=== PATIENT | male | born 1940 | race Caucasian/White ===

== ENCOUNTER 2016-11-25 20:03 | Inpatient (IN) | payer BC, OTHER ==
[~2016-11-25] VITALS: Ht 170.2 cm; Wt 79.2 kg
[2016-11-25] MEDS ORDERED: NIAC500T7 PO (20:36)
[2016-11-25] MEDS ORDERED: LISI-461 PO (20:36)
[2016-11-25] MEDS ORDERED: SIMV20TA2 PO (20:36)
[2016-11-25] MEDS ORDERED: CHOL1000 PO (20:36)
[2016-11-25] MEDS ORDERED: CARV3.122 PO (20:36)
[2016-11-25] MEDS ORDERED: ASPI81TA28 PO (20:36)
[2016-11-25] MEDS ORDERED: SODIUM CHLORIDE 0.9% 1000ML 1,000 ML IV STA (20:44)
[2016-11-25 21:02] LABS: BASO % 0.6 %; BASO ABS # 0.04 K/uL (0-0.2); COMPLETE YES; EOS % 4.1 %; HEMATOCRIT 38.2 % (42-52); IG% 0.3 %; LYMPH % 28.4 %; LYMPH ABS # 1.92 K/uL (1.2-3.4); MEAN CELL VOLUME 90.1 fL (80-100); MEAN CORPUSCULAR HEMOGLOBIN 30.7 pg (25-34); MEAN PLATELET VOLUME 11.3 fL (7.4-10.4); MONO % 9.7 %; NEUT % 56.9 %; PLATELET COUNT 229 K/uL (130-400); RED BLOOD COUNT 4.24 M/uL (4.7-6.1); WHITE BLOOD COUNT 6.77 K/uL (4.8-10.8)
--- NOTE | 2016-11-25 21:02 | DIAGNOSTIC IMAGING REPORT ---
CHEST ONE VIEW PORTABLE CLINICAL HISTORY: Chest pain. COMPARISON STUDY: No previous studies for comparison. FINDINGS: Lung volumes are normal. No consolidation is identified. Pulmonary vascularity is normal. Cardiomediastinal silhouette is unremarkable. There is no pneumothorax or pleural effusion. IMPRESSION: No acute cardiopulmonary findings. Electronically signed by: Agustin Massey M.D. 11/25/2016 9:01 PM Dictated Date/Time: 11/25/2016 9:00 PM
[2016-11-25 21:12] LABS: ALT/SGPT 22 U/L (12-78); AST/SGOT 15 U/L (15-37); BLOOD UREA NITROGEN 22 mg/dl (7-18); BUN/CREATININE RATIO 13.9 (10-20); CALCIUM 8.5 mg/dl (8.5-10.1); CARBON DIOXIDE 32 mmol/L (21-32); CHLORIDE 105 mmol/L (98-107); GLUCOSE 135 mg/dl (70-99); POTASSIUM 4.2 mmol/L (3.5-5.1); SODIUM 139 mmol/L (136-145)
[2016-11-25 21:13] LABS: ALKALINE PHOSPHATASE 95 U/L (45-117)
[2016-11-25] MEDS ORDERED: ONDANSETRON INJ 2 MG/ML 2 ML VIAL IV PRN (22:00)
[2016-11-25] MEDS ORDERED: MoRPHine SULFATE 2 MG/ML CARP IV PRN (22:00)
[2016-11-25] MEDS ORDERED: SODIUM CHLORIDE 0.9% 1000ML 1,000 ML IV ONE (22:00)
[2016-11-25] MEDS ORDERED: ACETAMINOPHEN 325 MG TAB PO PRN (22:00)
[2016-11-25] MEDS ORDERED: NITROGLYCERIN 0.4 MG SL PER TAB CHARGE SL PRN (22:00)
[2016-11-25 22:17] VITALS: O2SAT 98
[2016-11-25 22:32] VITALS: Ht 170.2 cm; Wt 79.2 kg
[2016-11-25 22:36] VITALS: BP 139/71; PULSE 57; TEMP 36.8; O2SAT 97
[2016-11-26 03:25] VITALS: BP 132/69; PULSE 58; TEMP 36.4; O2SAT 97
--- NOTE | 2016-11-26 04:12 | History and Physical ---
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 The patient notes he was at [employer] when he suddenly suffered from acute chest pressure when he was sitting down. He had associated nausea and diaphoresis with the onset of the chest pressure. He suddenly slumped over on the chair at [employer] and her gave him nitroglycerin. The nitro was given three times and he had become unresponsive again for a few seconds after the third nitro. On assessment the patient has ongoing chest pressure which is a 2/10 currently. There was no radiation of the pain and he could not recall anything that aggravated the pain or improved it. The IL was in the RCA and patient received two stents for this IL at [place]. He is a non smoker. Past Medical/Surgical History NSTEMI HTN Family History No significant family history Social History Smoking Status: Never Smoker Smokeless Tobacco Use: No Alcohol Use: none Drug Use: none Marital Status: Housing status: lives with family Occupational Status: retired Immunizations History of Influenza Vaccine: Unknown History of Tetanus Vaccine?: Unknown History of Pneumococcal: Unknown History of Hepatitis B Vaccine: Unknown Multi-Drug Resistant Organisms History of MDRO: No Allergies Coded Allergies: No Known Allergies (Unverified , 11/25/16) Home Medications Scheduled Aspirin (Aspirin Ec), 81 MG PO DAILY Carvedilol (Coreg), 3.125 MG PO BID Cholecalciferol (Vitamin D3), 1,000 UNITS PO BID Lisinopril (Zestril), 10 MG PO BID Niacinamide (Niacin), 500 MG PO DAILY Simvastatin (Zocor), 20 MG PO QPM Scheduled PRN Nitroglycerin (Nitrostat), 0.4 MG SL [id number] PRN for chest pain Review of Systems Constitutional: No fever Eyes: No worsening of vision ENT: No hearing loss Respiratory: No cough, No sputum, No wheezing, No shortness of breath, No dyspnea on exertion, No dyspnea at rest Cardiovascular: + chest pain Abdomen: + nausea, No pain, No vomiting, No diarrhea, No constipation Musculoskeletal: No joint pain, No muscle pain Genitourinary - Male: No hematuria, No dysuria Neurologic: No weakness, No numbness/tingling, No balance problems Psychiatric: No depression symptoms Endocrine: No fatigue Hematologic / Lymphatic: No abnormal bleeding/bruising Integumentary: No rash Physical Exam Vital Signs Date Time Temp Pulse Resp B/P (MAP) Pulse Ox O2 Delivery O2 Flow Rate FiO2 11/26/16 03:25 36.4 58 16 132/69 (90) 97 Room Air 11/26/16 00:00 Room Air 11/25/16 22:36 36.8 57 20 139/71 (93) 97 Room Air 11/25/16 22:32 Room Air 11/25/16 22:17 59 18 150/79 98 11/25/16 21:15 58 18 127/63 97 Room Air 11/25/16 21:03 57 13 98 11/25/16 20:48 55 15 97 11/25/16 20:33 55 14 96 11/25/16 20:31 98 Room Air 11/25/16 20:18 54 15 96 11/25/16 20:13 96 Room Air 11/25/16 20:13 36.4 51 18 135/65 97 Room Air 11/25/16 20:09 52 11/25/16 20:08 135/65 General Appearance: no apparent distress Head: normocephalic, atraumatic Eyes: normal inspection ENT: normal ENT inspection Neck: supple, no JVD Respiratory/Chest: lungs clear, normal breath sounds, no respiratory distress, no accessory muscle use Cardiovascular: regular rate, rhythm, no murmur, normal peripheral pulses Abdomen/GI: normal bowel sounds, non tender, soft Back: normal inspection, no CVA tenderness Extremities/Musculoskelatal: no calf tenderness, no pedal edema, normal range of motion Neurologic/Psych: alert, normal mood/affect, oriented x 3 Skin: normal color, warm/dry, no rash Lymphatic: no adenopathy Diagnostics Laboratory Results Results Past 24 Hours Test 11/25/16 20:25 11/25/16 20:54 11/26/16 02:09 Range/Units White Blood Count 6.77 4.8-10.8 K/uL Red Blood Count 4.24 4.7-6.1 M/uL Hemoglobin 13.0 14.0-18.0 g/dL Hematocrit 38.2 42-52 % Mean Corpuscular Volume 90.1 80-100 fL Mean Corpuscular Hemoglobin 30.7 25-34 pg Mean Corpuscular Hemoglobin Concent 34.0 32-36 g/dl Platelet Count 229 130-400 K/uL Mean Platelet Volume 11.3 7.4-10.4 fL Neutrophils (%) (Auto) 56.9 % Lymphocytes (%) (Auto) 28.4 % Monocytes (%) (Auto) 9.7 % Eosinophils (%) (Auto) 4.1 % Basophils (%) (Auto) 0.6 % Neutrophils # (Auto) 3.85 1.4-6.5 K/uL Lymphocytes # (Auto) 1.92 1.2-3.4 K/uL Monocytes # (Auto) 0.66 0.11-0.59 K/uL Eosinophils # (Auto) 0.28 0-0.5 K/uL Basophils # (Auto) 0.04 0-0.2 K/uL RDW Standard Deviation 40.4 36.4-46.3 fL RDW Coefficient of Variation 12.4 11.5-14.5 % Immature Granulocyte % (Auto) 0.3 % Immature Granulocyte # (Auto) 0.02 0.00-0.02 K/uL Sodium Level 139 136-145 mmol/L Potassium Level 4.2 3.5-5.1 mmol/L Chloride Level 105 98-107 mmol/L Carbon Dioxide Level 32 21-32 mmol/L Anion Gap 2.0 3-11 mmol/L Blood Urea Nitrogen 22 7-18 mg/dl Creatinine 1.60 0.60-1.40 mg/dl Est Creatinine Clear Calc Drug Dose 41.3 ml/min Estimated GFR () 48.1 Estimated GFR (Non- 41.5 BUN/Creatinine Ratio 13.9 10-20 Random Glucose 135 70-99 mg/dl Calcium Level 8.5 8.5-10.1 mg/dl Total Bilirubin 0.3 0.2-1 mg/dl Direct Bilirubin < 0.1 0-0.2 mg/dl Aspartate Amino Transf (AST/SGOT) 15 15-37 U/L Alanine Aminotransferase (ALT/SGPT) 22 12-78 U/L Alkaline Phosphatase 95 45-117 U/L Total Protein 6.5 6.4-8.2 gm/dl Albumin 3.7 3.4-5.0 gm/dl Lipase 260 73-393 U/L Bedside Troponin I < 0.030 0-0.045 ng/ml Troponin I < 0.015 0-0.045 ng/ml Diagnostic Radiology CHEST ONE VIEW PORTABLE CLINICAL HISTORY: Chest pain. COMPARISON STUDY: No previous studies for comparison. FINDINGS: Lung volumes are normal. No consolidation is identified. Pulmonary vascularity is normal. Cardiomediastinal silhouette is unremarkable. There is no pneumothorax or pleural effusion. IMPRESSION: No acute cardiopulmonary findings. Impression Assessment and Plan This is a 76 yo m that is suffering from chest pain which is suggestive of a myocardial infarction based on history and significant past medical history Chest pain NYD with a history of IL - tele admission - trend troponin - stress echo in am if troponin are negative - will defer cardio consult for now - continue 81 mg of ASA daily CHELI vs CKD - unknown BL cr - will recheck in am - IVF NSS @ 150cc/h HTN - continue lisinopril and metoprolol Hyperlipidemia - continue simvastatin and niacin DVT Prophylaxis - SCD for now Attending Addendum: I have physically seen and examined this patient, have supervised the medical residents activities, and agree with the H&P as noted above with the following exceptions as noted. The patient presents to the emergency department after having a syncopal episode , with associated chest pressure, nausea and diaphoresis while at [employer]. The patient denies palpitations, cough, lower extremity swelling, vision change , hearing change, sore throat, fevers, chills, sweats, weight change, fatigue, vomiting, abdominal pain, pelvic pain, blood in urine or stool, dysuria, urinary frequency or urgency, headache, memory loss, rash, abnormal bruising or bleeding, focal weakness, numbness or tingling in arms or legs, generalized arthralgias or myalgias, back or neck pain, night sweats, or allergy symptoms. The review of systems is otherwise negative other than for that already noted above, and at least 10 systems have been reviewed. The patient is awake, well-developed and adequately nourished, alert and oriented 3, normocephalic and atraumatic, lying in bed and in no acute distress. HEENT--PERRL, EOMI, mucous membranes and oropharynx dry. Neck--supple, no JVD or bruits, thyroid normal, trachea midline, no adenopathy. Heart--normal S1 and S2, no extra beats, no murmurs, rubs or gallops. Lungs--clear bilaterally with good air movement, no respiratory distress, no accessory muscle use. Abdomen--normal bowel sounds and soft, nontender and nondistended, no hernias or masses, no organomegaly. Extremities--no cyanosis, clubbing or edema. There are good distal pulses b/l. Dermatologic--normal skin turgor, normal color, warm and dry, no abnormal lymph nodes, no rash. Neurologic--cranial nerves II through XII grossly intact, motor and sensory examination normal. Rheumatologic--normal range of motion, nontender, muscles and joints. Psychiatric--normal affect. Assessment and Plan: 1. CAD/hypertension/history of IL/new episode of chest pressure with syncope-- The patient will be admitted to telemetry for serial cardiac enzymes, cardiac rhythm monitoring and a 2-D echocardiogram with Dopplers. Continue aspirin 81 mg by mouth daily, carvedilol 3.125 mg by mouth twice a day with hold parameters. Hold lisinopril due to acute kidney injury, and place on normal saline at 150 mL per hour. Check serial BMP and magnesium levels. 2. Hyperlipidemia --continue simvastatin 20 mg by mouth every afternoon and niacin 500 mg by mouth daily. Level of Care Telemetry Advanced Directives Existing Living Will: Yes Existing Power of Jack Spinner: Yes Resuscitation Status FULL RESUSCITATION VTE Prophylaxis VTE Risk Assessment Done? Y/N: Yes Risk Level: Moderate Given or contraindicated: SCD's Social Service Consult None Apply Note Total Time: Critical Care 30 - 74 minutes
[2016-11-26 08:01] VITALS: BP 138/63; PULSE 63; TEMP 36.9; O2SAT 95
[2016-11-26] MEDS ORDERED: CHOLECALCIFEROL 1000 INTER.UNIT TAB PO SCH ×2 (09:00)
[2016-11-26] MEDS ORDERED: CARVEDILOL 3.125 MG TAB PO SCH (09:00)
[2016-11-26] MEDS ORDERED: ASPIRIN 81 MG ECTAB PO SCH ×2 (09:00)
[2016-11-26] MEDS ORDERED: LISINOPRIL 10 MG TAB PO SCH (09:00)
[2016-11-26] MEDS ORDERED: NIACIN 500 MG TAB IMMEDIATE RELEASE PO SCH (09:00)
[2016-11-26 09:26] LABS: BLOOD UREA NITROGEN 18 mg/dl (7-18); BUN/CREATININE RATIO 17.7 (10-20); CALCIUM 8.3 mg/dl (8.5-10.1); CARBON DIOXIDE 27 mmol/L (21-32); CHLORIDE 110 mmol/L (98-107); CKMB/CK RATIO 2.8 (0-3.0); GLUCOSE 95 mg/dl (70-99); MAGNESIUM 2.1 mg/dl (1.8-2.4); POTASSIUM 4.2 mmol/L (3.5-5.1); SODIUM 142 mmol/L (136-145)
[2016-11-26 12:12] VITALS: BP 133/72; PULSE 66; TEMP 36.6; O2SAT 95
[2016-11-26] MEDS ORDERED: OPTIRAY 320 IV PRN (12:30)
--- NOTE | 2016-11-26 12:32 | EXERCISE STRESS ECHO ---
*NOTICE TO RECEIVING CONSTITUTION PARTY AGENCY This information is strictly Confidential and protected under [place] law. [place] law prohibits you from making any further disclosure of this information unless further disclosure is expressly permitted by the written consent of the person to whom it pertains or is authorized by law. A general authorization for the release of medical or other information is not sufficient for this purpose. Hospital accepts no responsibility if the information is made available to any other person, INCLUDING THE PATIENT. Interpretation Summary * Name: REUBEN MCNALLY Study Date: 11/26/2016 08:54 AM BP: 157/73 mmHg * Patient Location: C.2T\S\S232\S\1 HR: 57 * : 1940 (M/d/yyyy) Gender: Male Height: 67 in * Age: 76 yrs Ethnicity: [place] Weight: 175 lb * Ordering Physician: Chelsie Emanuel * Referring Physician: Kip Latif * Performed By: Karuna Vigil RDCS * * Reason For Study: CHEST PAIN, PRESSURE * BSA: 1.9 m2 * -- Conclusions -- * Stress Echo: * 1. Negative stress echo for ischemia at 86 % MPHR. * 2. Negative exercise ECG for ischemia at 86 % MPHR. * 3. Hypertensive blood pressure response to exercise. * 4. No arrhythmia. * 5. Study terminated due to hypertension. * 6. Patient complained of chest pain prior to exercise and during exercise. It resolved in recovery. * 7. Fair/good exercise tolerance. * Echo: * 1. Normal left ventricular size and systolic function. EF 60-65%. No regional wall motion abnormalities. No left ventricular hypertrophy. Type 1 diastolic dysfunction regurgitation. * 2. Mild mitral regurgitation. * 3. Normal estimated right ventricular systolic pressure; 31 mmHg. Procedure Details * ECHOEX, CPT #[id number] Left Ventricle * The left ventricle is normal in size. * There is normal left ventricular wall thickness. * Left ventricular systolic function is normal. * The left ventricular ejection fraction increases normally with stress. The left ventricular end-systolic cavity size reduces post-stress (normal response). The left ventricular wall motion with stress is normal. * Resting wall motion: Normal. Stress wall motion: Appropriate increase in Left ventricular systolic function and decrease in cavity size. No stress induced segmental wall motion abnormalities. Right Ventricle * The right ventricle is normal in size and function. * The right ventricular systolic function is normal as assessed by tricuspid annular plane systolic excursion (TAPSE) (normal >1.5 cm). Atria * The left atrial size is normal. * Right atrial size is normal. * There is no evidence of atrial septal defect, but resolution does not allow assessment for a patent foramen ovale. Mitral Valve * The mitral valve leaflets appear normal. There is no evidence of stenosis, fluttering, or prolapse. * There is mild mitral regurgitation. Tricuspid Valve * The tricuspid valve is not well visualized, but is grossly normal. * There is no tricuspid stenosis. * There is mild tricuspid regurgitation. Aortic Valve * The aortic valve is trileaflet. * No hemodynamically significant valvular aortic stenosis. * No aortic regurgitation is present. Pulmonic Valve * The pulmonary valve is inadequately visualized, but the Doppler data is adequate for interpretation. * Trace pulmonic valvular regurgitation. Great Vessels * The aortic root is normal size. * Normal pulmonary venous flow pattern. Pericardium * There is no pericardial effusion. Stress Parameters * NSR at 60 bpm. * Stress ECG: No ST changes. No arrhythmias. * No arrhythmia were noted with stress. * Rest heart rate was '57' BPM. * Rest blood pressure was '157/73' * Maximum heart rate achieved was 125 bpm. * Maximum heart rate was 86 % of maximum age-predicted heart rate. * Maximum blood pressure was '216/61 mmHg' * Total exercise time was '7:17' * Maximum exercise MET level achieved was '8.90' METS * Maximum treadmill speed was '3.40' miles per hour. * Maximum treadmill elevation was '14.00'% grade. * Exercise was terminated due to 'ACHIEVING TARGET HR and hypertension' * Exercise-induced hypertension. Left Ventricular Diastolic Function * Grade I diastolic dysfunction, (abnormal relaxation pattern). MMode 2D Measurements and Calculations IVSd 1.1 cm IVSs 1.4 cm LVIDd 3.8 cm LVIDs 2.6 cm LVPWd 1.1 cm LVPWs 1.7 cm IVS/LVPW 1.0 FS 31.5 % EDV(Teich) 63.6 ml ESV(Teich) 25.3 ml EF(Teich) 60.2 % EDV(cubed) 56.7 ml ESV(cubed) 18.2 ml EF(cubed) 67.9 % % IVS thick 28.2 % % LVPW thick 55.8 % LV mass(C)d 134.2 grams LV mass(C)dI 70.2 grams/m\S\2 LV mass(C)s 139.9 grams LV mass(C)sI 73.2 grams/m\S\2 SV(Teich) 38.3 ml SI(Teich) 20.0 ml/m\S\2 SV(cubed) 38.5 ml SI(cubed) 20.2 ml/m\S\2 Ao root diam 3.6 cm Ao root area 10.2 cm\S\2 LA dimension 3.5 cm asc Aorta Diam 2.9 cm LA/Ao 0.97 LVAd ap4 29.4 cm\S\2 LVLd ap4 8.4 cm EDV(MOD-sp4) 83.9 ml EDV(sp4-el) 87.1 ml LVAs ap4 16.1 cm\S\2 LVLs ap4 7.2 cm ESV(MOD-sp4) 30.4 ml ESV(sp4-el) 30.4 ml EF(MOD-sp4) 63.8 % EF(sp4-el) 65.1 % LVAd ap2 26.6 cm\S\2 LVLd ap2 8.0 cm EDV(MOD-sp2) 71.7 ml EDV(sp2-el) 74.9 ml LVAs ap2 15.3 cm\S\2 LVLs ap2 6.8 cm ESV(MOD-sp2) 30.6 ml ESV(sp2-el) 29.3 ml EF(MOD-sp2) 57.3 % EF(sp2-el) 60.8 % LVLd %diff -4.81 % EDV(MOD-bp) 80.4 ml LVLs %diff -6.47 % ESV(MOD-bp) 30.6 ml EF(MOD-bp) 61.9 % SV(MOD-sp4) 53.5 ml SI(MOD-sp4) 28.0 ml/m\S\2 SV(MOD-sp2) 41.1 ml SI(MOD-sp2) 21.5 ml/m\S\2 SV(MOD-bp) 49.8 ml SI(MOD-bp) 26.1 ml/m\S\2 SV(sp4-el) 56.7 ml SI(sp4-el) 29.7 ml/m\S\2 SV(sp2-el) 45.5 ml SI(sp2-el) 23.8 ml/m\S\2 Doppler Measurements and Calculations MV E max humaira 110.8 cm/sec MV A max humaira 147.5 cm/sec MV E/A 0.75 MV dec time 0.26 sec Ao V2 max 149.3 cm/sec Ao max PG 8.9 mmHg Ao max PG (full) 5.2 mmHg LV V1 max PG 3.7 mmHg LV V1 max 96.5 cm/sec TV E max humaira 62.5 cm/sec PA V2 max 112.1 cm/sec PA max PG 5.0 mmHg TR max humaira 265.7 cm/sec RVSP(TR) 31.2 mmHg RAP systole 3.0 mmHg
--- NOTE | 2016-11-26 13:43 | DIAGNOSTIC IMAGING REPORT ---
(CHEST FOR PE) ANGIO WITH CLINICAL HISTORY: 76 years-old Male presenting with chest pain and syncope, fall. TECHNIQUE: Multidetector CT angiography of the chest was performed after administration of intravenous contrast. 3-D volumetric and maximum intensity projection (MIP) images were subsequently reconstructed for review. IV contrast: 101 mL of Optiray 320. A dose lowering technique was used consistent with the principles of ALARA (as low as reasonably achievable). COMPARISON: Chest x-ray from 11/25/2016. CT DOSE (mGy.cm): The estimated cumulative dose is 297.21 mGy.cm. FINDINGS: Ore Sampler topogram: Unremarkable. Pulmonary vasculature: The study is adequate for assessment of the pulmonary vascular tree. No filling defect within the pulmonary arteries to suggest embolus. Main pulmonary artery not enlarged. No flattening of the interventricular septum. No intracardiac filling defect. Remaining chest: On soft tissue windows, normal thyroid and thoracic inlet. Few subcentimeter mediastinal lymph nodes, nonspecific and possibly reactive. Minimal atherosclerosis of the aortic arch. Top normal heart size. Coronary artery calcification. Trace right pleural effusion. Small hiatal hernia. On lung windows, dependent opacities in the right greater than left, likely atelectasis. No other focal infiltrate. Airways patent. On bone windows, degenerative changes of the thoracic spine. IMPRESSION: 1. No evidence of pulmonary embolus. 2. Minimal dependent atelectasis. No convincing evidence of acute intrathoracic injury. 3. Trace right pleural effusion. Electronically signed by: Rui Crabtree M.D. 11/26/2016 1:41 PM Dictated Date/Time: 11/26/2016 1:35 PM
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
--- NOTE | 2016-11-26 15:24 | Discharge Summary ---
Discharge Summary Date of Service Nov 26, 2016. (Patsy Hale, JOSEPH) Discharge Summary Admission Date: Nov 25, 2016 at 21:57 Discharge Date: Nov 26, 2016 Discharge Disposition: Home Principal Diagnosis: Syncopal episode Problems/Secondary Diagnoses: Syncopal-like episode chest pain h/o CAD s/p 2 DEMETRICE to RCA in 06/2011 [facility]LI HTN Hyperlipidemia Procedures: STRESS ECHOCARDIOGRAM: Interpretation Summary * Name: REUBEN MCNALLY Study Date: 11/26/2016 08:54 AM BP: 157/73 mmHg * Patient Location: [id number]\\[id number]\\S232\\[id number]\\1 HR: 57 * : 1940 (M/d/yyyy) Gender: Male Height: 67 in * Age: 76 yrs Ethnicity: CA Weight: 175 lb * Ordering Physician: Chelsie Emanuel * Referring Physician: Kip Latif * Performed By: Karuna Vigil RDCS * * Reason For Study: CHEST PAIN, PRESSURE * BSA: 1.9 m2 * -- Conclusions -- * Stress Echo: * 1. Negative stress echo for ischemia at 86 % MPHR. * 2. Negative exercise ECG for ischemia at 86 % MPHR. * 3. Hypertensive blood pressure response to exercise. * 4. No arrhythmia. * 5. Study terminated due to hypertension. * 6. Patient complained of chest pain prior to exercise and during exercise. It resolved in recovery. * 7. Fair/good exercise tolerance. * Echo: * 1. Normal left ventricular size and systolic function. EF 60-65%. No regional wall motion abnormalities. No left ventricular hypertrophy. Type 1 diastolic dysfunction regurgitation. * 2. Mild mitral regurgitation. * 3. Normal estimated right ventricular systolic pressure; 31 mmHg. Procedure Details * ECHOEX, CPT #[id number] Left Ventricle * The left ventricle is normal in size. * There is normal left ventricular wall thickness. * Left ventricular systolic function is normal. * The left ventricular ejection fraction increases normally with stress. The left ventricular end-systolic cavity size reduces post-stress (normal response). The left ventricular wall motion with stress is normal. * Resting wall motion: Normal. Stress wall motion: Appropriate increase in Left ventricular systolic function and decrease in cavity size. No stress induced segmental wall motion abnormalities. Right Ventricle * The right ventricle is normal in size and function. * The right ventricular systolic function is normal as assessed by tricuspid annular plane systolic excursion (TAPSE) (normal >1.5 cm). Atria * The left atrial size is normal. * Right atrial size is normal. * There is no evidence of atrial septal defect, but resolution does not allow assessment for a patent foramen ovale. Mitral Valve * The mitral valve leaflets appear normal. There is no evidence of stenosis, fluttering, or prolapse. * There is mild mitral regurgitation. Tricuspid Valve * The tricuspid valve is not well visualized, but is grossly normal. * There is no tricuspid stenosis. * There is mild tricuspid regurgitation. Aortic Valve * The aortic valve is trileaflet. * No hemodynamically significant valvular aortic stenosis. * No aortic regurgitation is present. Pulmonic Valve * The pulmonary valve is inadequately visualized, but the Doppler data is adequate for interpretation. * Trace pulmonic valvular regurgitation. Great Vessels * The aortic root is normal size. * Normal pulmonary venous flow pattern. Pericardium * There is no pericardial effusion. Stress Parameters * NSR at 60 bpm. * Stress ECG: No ST changes. No arrhythmias. * No arrhythmia were noted with stress. * Rest heart rate was '57' BPM. * Rest blood pressure was '157/73' * Maximum heart rate achieved was 125 bpm. * Maximum heart rate was 86 % of maximum age-predicted heart rate. * Maximum blood pressure was '216/61 mmHg' * Total exercise time was '7:17' * Maximum exercise MET level achieved was '8.90' METS * Maximum treadmill speed was '3.40' miles per hour. * Maximum treadmill elevation was '14.00'% grade. * Exercise was terminated due to 'ACHIEVING TARGET HR and hypertension' * Exercise-induced hypertension. Left Ventricular Diastolic Function * Grade I diastolic dysfunction, (abnormal relaxation pattern). CHEST ONE VIEW PORTABLE CLINICAL HISTORY: Chest pain. COMPARISON STUDY: No previous studies for comparison. FINDINGS: Lung volumes are normal. No consolidation is identified. Pulmonary vascularity is normal. Cardiomediastinal silhouette is unremarkable. There is no pneumothorax or pleural effusion. IMPRESSION: No acute cardiopulmonary findings. Electronically signed by: Agustin Massey M.D. 11/25/2016 9:01 PM Dictated Date/Time: 11/25/2016 9:00 PM The status of this report is Signed. Draft = Not yet reviewed or approved by Radiologist. Signed = Reviewed and approved by Radiologist. (CHEST FOR PE) ANGIO WITH CLINICAL HISTORY: 76 years-old Male presenting with chest pain and syncope, fall. TECHNIQUE: Multidetector CT angiography of the chest was performed after administration of intravenous contrast. 3-D volumetric and maximum intensity projection (MIP) images were subsequently reconstructed for review. IV contrast: 101 mL of Optiray 320. A dose lowering technique was used consistent with the principles of ALARA (as low as reasonably achievable). COMPARISON: Chest x-ray from 11/25/2016. CT DOSE (mGy.cm): The estimated cumulative dose is 297.21 mGy.cm. FINDINGS: [employer] topogram: Unremarkable. Pulmonary vasculature: The study is adequate for assessment of the pulmonary vascular tree. No filling defect within the pulmonary arteries to suggest embolus. Main pulmonary artery not enlarged. No flattening of the interventricular septum. No intracardiac filling defect. Remaining chest: On soft tissue windows, normal thyroid and thoracic inlet. Few subcentimeter mediastinal lymph nodes, nonspecific and possibly reactive. Minimal atherosclerosis of the aortic arch. Top normal heart size. Coronary artery calcification. Trace right pleural effusion. Small hiatal hernia. On lung windows, dependent opacities in the right greater than left, likely atelectasis. No other focal infiltrate. Airways patent. On bone windows, degenerative changes of the thoracic spine. IMPRESSION: 1. No evidence of pulmonary embolus. 2. Minimal dependent atelectasis. No convincing evidence of acute intrathoracic injury. 3. Trace right pleural effusion. Electronically signed by: Rui Crabtree M.D. 11/26/2016 1:41 PM Dictated Date/Time: 11/26/2016 1:35 PM The status of this report is Signed. Draft = Not yet reviewed or approved by Radiologist. Signed = Reviewed and approved by Radiologist. (Patsy Hale, JOSEPH) Medication Reconciliation New Medications: Nitroglycerin (Nitrostat) 0.4 Mg/1 Tab Subl 0.4 MG SL [id number] PRN for chest pain, #1 BTL 0 Refills Continued Medications: Aspirin (Aspirin Ec) 81 Mg Tab 81 MG PO DAILY Carvedilol (Coreg) 3.125 Mg Tab 3.125 MG PO BID, TAB Cholecalciferol (Vitamin D3) 1,000 Unit Tab 1000 UNITS PO BID for 90 Days, TAB 3 Refills Lisinopril (Zestril) 10 Mg Tab 10 MG PO BID, TAB Niacinamide (Niacin) 500 Mg Tab 500 MG PO DAILY, TAB Simvastatin (Zocor) 20 Mg Tab 20 MG PO QPM, TAB Discharge Exam Review of Systems: Constitutional: No fever, No chills, No sweats, No weakness, No fatigue Respiratory: No cough, No shortness of breath, No hemoptysis Cardiovascular: No chest pain, No edema, No palpitations Abdomen: No pain, No nausea, No vomiting, No diarrhea, No GI bleeding Musculoskeletal: No joint pain, No muscle pain, No calf pain Genitourinary - Male: No hematuria, No dysuria Neurologic: No weakness, No numbness/tingling Psychiatric: No depression symptoms, No anxiety Hematologic / Lymphatic: No abnormal bleeding/bruising Integumentary: No rash, No itch, No new/changing skin lesions Physical Exam: General Appearance: WD/WN, no apparent distress Eyes: normal inspection, PERRL ENT: hearing grossly normal Neck: supple Respiratory/Chest: lungs clear, no respiratory distress, no accessory muscle use Cardiovascular: regular rate, rhythm Abdomen / GI: normal bowel sounds, non tender, soft Extremities: no calf tenderness, no pedal edema Neurologic/Psychiatric: no motor/sensory deficits, alert, normal mood/affect , oriented x 3 Skin: normal color, warm/dry, no rash (Patsy Hale, PA-C) Hospital Course Admission H&P: This is a 76 yo m that with a history of UT of the RCA approx 5 years prior that is presenting to us with syncopal episode and associated chest pressure. The patient notes he was at [employer] when he suddenly suffered from acute chest pressure when he was sitting down. He had associated nausea and diaphoresis with the onset of the chest pressure. He suddenly slumped over on the chair at [employer] and her gave him nitroglycerin. The nitro was given three times and he had become unresponsive again for a few seconds after the third nitro. On assessment the patient has ongoing chest pressure which is a 2/10 currently. There was no radiation of the pain and he could not recall anything that aggravated the pain or improved it. The UT was in the RCA and patient received two stents for this UT at [place]. He is a non smoker. Physical Exam Vital Signs Date Time Temp Pulse Resp B/P (MAP) Pulse Ox O2 Delivery O2 Flow Rate FiO2 11/26/16 03:25 36.4 58 16 132/69 (90) 97 Room Air 11/26/16 00:00 Room Air 11/25/16 22:36 36.8 57 20 139/71 (93) 97 Room Air 11/25/16 22:32 Room Air 11/25/16 22:17 59 18 150/79 98 11/25/16 21:15 58 18 127/63 97 Room Air 11/25/16 21:03 57 13 98 11/25/16 20:48 55 15 97 11/25/16 20:33 55 14 96 11/25/16 20:31 98 Room Air 11/25/16 20:18 54 15 96 11/25/16 20:13 96 Room Air 11/25/16 20:13 36.4 51 18 135/65 97 Room Air 11/25/16 20:09 52 11/25/16 20:08 135/65 General Appearance: no apparent distress Head: normocephalic, atraumatic Eyes: normal inspection ENT: normal ENT inspection Neck: supple, no JVD Respiratory/Chest: lungs clear, normal breath sounds, no respiratory distress, no accessory muscle use Cardiovascular: regular rate, rhythm, no murmur, normal peripheral pulses Abdomen/GI: normal bowel sounds, non tender, soft Back: normal inspection, no CVA tenderness Extremities/Musculoskelatal: no calf tenderness, no pedal edema, normal range of motion Neurologic/Psych: alert, normal mood/affect, oriented x 3 Skin: normal color, warm/dry, no rash Lymphatic: no adenopathy Hospital Course: Syncopal-like episode/chest pain, ACS r/o: - Admitted to [facility] for cardiac monitoring- no acute events - Tended cardiac enzymes- negative - Stress echocardiogram- negative for ischemia - IV Nitro and Morphine PRN - 30-day event monitor at discharge - CTA of chest to r/o PE due to unremarkable stress test and h/o [address]- negative for acute cardiopulmonary process h/o CAD s/p 2 DEMETRICE to RCA in 06/2011- follows w/ Dr. Yeung: - Continue ASA 81 mg daily, Coreg 3.125 mg BID, Simvastatin and Niacin - Discussed w/ patient/- has nitro SL for PRN use at home CHELI w/ Cr. 1.60- RESOLVED: - Cr. 1.00 at discharge - Treated w/ IVF NSS @ 150cc/h x2 bags HTN- CONTROLLED: Continue Lisinopril 10 mg BID Hyperlipidemia: Continue Simvastatin 20 mg HS and Niacin 500 mg daily DVT Prophylaxis: TEDs Code Status: LEVEL I, FULL Dispo: Discharge to home Total Time Spent: Greater than 30 minutes This includes examination of the patient, discharge planning, medication reconciliation, and communication with other providers. (Patsy Hale ., PAKayode) Attending Discharge Note & Attestation: Pt seen/examined, chart reviewed, discharge care plan d/w GANESH Hale. I agree w/ the celestin components of her discharge summary. Pleasant 76yo male with known CAD, s/p STEMI 2nd to RCA occlusion 2011 at [facility] [place], who presented with chest pain and brief syncopal episode while attending [employer] [facility]. Per reports the event was quite dramatic as he was pale and he indeed had brief loss of consciousness. There was no prodrome prior to the syncopal event. Extensive cardiac evaluation during this stay including EKGs, cardiac enzymes x 3 sets, and exercise stress echo were negative/normal. Telemetry was normal. CTA chest was negative for PE. The aorta also appeared normal. The only finding during this stay was that of acute kidney injury; admission Cr was 1.6, improving to 1 with IV fluids. He and his family had been attending a "[employer]" for 2 days prior to the event and he admitted to possible poor hydration. The exact cause of this event was unclear. Perhaps the nitroglycerin (he received 3 SL nitros) caused transient hypotension leading to his syncope. Perhaps there was an arrhythmia that led to the syncope. As for the chest pain this, too, was unclear. Coronary vasospasm is certainly possible. Doubt reflux or other noncardiac causes. Outpatient 30-day event monitor to exclude arrhythmia was advised. He will also see his primary dermatology nurse, Dr. Yeung, at [facility] on 11/28/16 for follow-up and consideration of additional testing. discharge exam: gen - nad neck - no JVD heart - RRR, s1, s2, no murmur lungs - CTA b/l abd - soft, NT, ND, BS+, no HSM ext - radial pulses 2+ b/l, DP/pos tib pulses 2+ b/l, no edema chest - no reproducible chest wall pain Kofi Wright MD (Kofi Wright MD) Discharge Instructions Please refer to the electronic Patient Visit Report (Discharge Instructions) for additional information. (Patsy Hale, PA-C) Follow-Up Please follow-up with your PCP within 5-7 days Please follow-up with Cardiology on Saturday (11/28) Please follow-up/keep all of your subspecialty appointments (Patsy Hale, PA-C) Additional Copies To Desmond Yeung M.D.; KYLE SWIFT
--- NOTE | 2016-11-26 15:26 | Discharge Instructions ---
Discharge Instructions Date of Service Nov 26, 2016. Admission Reason for Admission: Chest Pain,Syncope And Collapse Discharge Discharge Diagnosis / Problem: Syncopal episode Discharge Goals Goal(s): Decrease discomfort, Learn about illness, Diagnostic testing, Prevent Disease Progression Activity Recommendations Activity Limitations: resume your previous activity . Instructions / Follow-Up Instructions / Follow-Up You were admitted to the hospital with a syncopal-like event/chest pain. At this time, the cause of your symptoms is unknown. EKG's, cardiac enzymes, and a stress echocardiogram was completed, all unremarkable for signs of an acute cardiac event. A CT scan of the chest was completed to look for a pulmonary embolism (PE)(blood clot in the lung), which was unremarkable for a PE or any other acute cardiopulmonary processes. A 30-day event monitor is recommended to monitor your heart rate/rhythm over the course of a month, which will help determine if any arrhythmias (irregular heart rhythm) occur that could be the culprit of the signs/symptoms you developed prior to admission. Additionally at admission, your kidney function was slightly declined. With IV hydration, your kidney function returned to normal. Please continue to stay well hydrated- drink enough fluids to keep your urine light/clear in color. You noted that you drive roughly 300 miles once per week. It is recommended every 1-2 hours, stop driving and walk/stretch for a few minutes. FOLLOW-UPS: Please follow-up with your PCP within 5-7 days Please follow-up with Cardiology, Dr. Yeung on 11/28 Please follow-up/keep all of your subspecialty appointments Home Care: * Take your medications exactly as directed. Don't skip doses. * If you are having chest pain, call 911 for an ambulance. Do NOT drive yourself to the hospital. * Ask your family members to learn CPR. * Learn to take your own blood pressure and pulse. Keep a record of your results. Ask your doctor when you should seek emergency medical attention. He or she will tell you which blood pressure reading is dangerous. Lifestyle Changes: * Maintain a healthy weight. Get help to lose any extra pounds. * Cut back on salt. * Limit canned, dried, packaged, and fast foods. * Don't add salt to your food. * Season foods with herbs instead of salt when you cook. * Break the smoking habit. Enroll in a stop-smoking program to improve your chances of success. * Limit fatty foods. * Ask your doctor about having your lipid levels checked regularly. * Build up your activity according to your doctor's recommendation. * Ask your doctor when it's okay to resume sexual activity. * Tell your doctor about any erectile dysfunction (ED) medication you are taking. Some ED medications are not safe if you take certain heart medications. * Try to manage stress. Follow Up: It is important for you to keep your follow up appointments with your medical provider. Current Hospital Diet Patient's current hospital diet: AHA Diet (Heart Healthy), Low Sodium Diet (2gm Na) Discharge Diet Recommended Diet: AHA Diet (Heart Healthy), Low Sodium Diet (2gm Na) Procedures Procedures Performed: Stress echocardiogram Pending Studies Studies pending at discharge: no Medical Emergencies . Who to Call and When: Medical Emergencies: If at any time you feel your situation is an emergency, please call 911 immediately. Call 911 immediately or go to your nearest Emergency Room if you experience any of the following: Warning Signs and Symptoms of a Heart Attack * Chest pain that is not relieved by medication * Shortness of breath . Non-Emergent Contact Non-Emergency issues call your: Primary Care Provider Call Non-Emergent contact if: you have a fever, your pain is not controlled, your pain is worsening, your pain is unusual for you, your pain is concerning you . . "Provider Documentation" section prepared by Patsy Hale. Attending Attestation: Pt seen/examined and discharge care plan d/w GANESH Hale. I agree w/ the celestin components of her discharge instructions. Kofi Wright MD . AMI Core Measures Reason no ASA as I/P: Treatment provided - N/A Reason no ASA at D/C: Treatment provided - N/A Reason no statin as I/P: Treatment provided - N/A Reason no statin at D/C: Treatment provided - N/A VTE Core Measure Inpt VTE Proph given/why not?: SCD's
[2016-11-26] MEDS ORDERED: NTRGSL4 SL (16:00)
[2016-11-26 16:13] VITALS: BP 133/72; PULSE 66; TEMP 36.6; O2SAT 95
[2016-11-26] MEDS ORDERED: SIMVASTATIN 20 MG TAB PO SCH (21:00)
== END 2016-11-26 16:35 | disposition home or self-care (01) | DRG 312 ==
LOC: EDBD 20:03 → C.EDC 20:05 → C.2T 21:57 → ENRESERV 21:59
PROVIDERS: ADMIT Hospitalist; ATTEND Internal Medicine
DX: R55 Syncope and collapse (principal); N17.9 Acute kidney failure, unspecified; R07.89 Other chest pain; I25.2 Old myocardial infarction; I25.10 Atherosclerotic heart disease of native coronary artery without angina pectoris; E78.5 Hyperlipidemia, unspecified; I10 Essential (primary) hypertension; Z95.5 Presence of coronary angioplasty implant and graft; Z79.82 Long term (current) use of aspirin; Z79.899 Other long term (current) drug therapy

== ENCOUNTER 2019-11-23 10:37 | Observation (INO) ==
--- OUTSIDE RECORDS SUMMARY | 2019-11-23 10:40 | External Medical Summary | Continuity of Care Document ---
:1940 Author Name Sergei Morse, Provider Address Unavailable Unavailable , Care Team Providers Name Role Phone Bryson Najera M.D. Unavailable [email or web address] PCP, UNKNOWN Unavailable Unavailable Problems Active medical history not documented Allergies and Adverse Reactions Allergy history not documented Medications Medications not documented Procedures Procedures not documented Immunizations Immunizations not documented Plan of Treatment Planned Observations Planned Goals not documented Results No Known Results Results not documented
--- OUTSIDE RECORDS SUMMARY | 2019-11-23 10:40 | External Medical Summary | Continuity of Care Document ---
:1940 Author Name Sergei Morse, Provider Address Unavailable Unavailable , Care Team Providers Name Role Phone Bryson Najera M.D. Unavailable [email or web address] PCP, UNKNOWN Unavailable Unavailable Problems Active medical history not documented Allergies and Adverse Reactions Allergy history not documented Medications Medications not documented Procedures Procedures not documented Immunizations Immunizations not documented Plan of Treatment Planned Observations Planned Goals not documented Results No Known Results Results not documented
[2019-11-23] MEDS ORDERED: ONDANSETRON INJ 2 MG/ML 2 ML VIAL IV STA (11:03)
[2019-11-23] MEDS ORDERED: fentaNYL citrate 100 MCG/2 ML VIAL IV STA (11:03)
--- NOTE | 2019-11-23 11:11 | Emergency Department Note ---
History of Present Illness General Chief complaint: Cardiac Assessment Stated complaint: CHEST PRESSURE,3 STENTS Time Seen by Provider: 11/23/19 10:54 Source: patient Limitations: no limitations History of Present Illness Provider complaint: Chest pain Onset (ago): hour(s) Location: chest Radiation: non-radiation Severity: mild Pain Consistency: + constant Maximum Pain Intensity: 3 Quality: + other (Pressure) Relieved By: + none Associated symptoms: + nausea/vomiting (Nausea no vomiting); no cough, no fever/chills and no shortness of breath Treatments prior to arrival: other (Nitroglycerin) This is a 79-year-old maleWith a history of coronary artery disease presenting with chest pain starting at 9 AM today. The patient states that he went out for a walk and when he came back he sat down and developed chest pain. He describes it as a pressure in the middle of his chest as if a bag of sugar were sitting on top of it. It is associated with nausea. He rates it a 3 out of 10 in severity. He did take 3 sublingual nitroglycerin prior to arrival which had no effect.He denies any associated shortness of breath, cough, fever, abdominal pain, vomiting, diarrhea, leg swelling or pain or known exposure COVID-19.He states yesterday he was at [employer] and he felt very lightheaded and felt as if he might pass out but he attributed it to heat. His stated that he had a near syncopal episode 2 years ago and was admitted to the hospital. He had a negative work-up and was sent home but after his detention sergeant saw him they did a cardiac catheterization and he had an additional stent placed for 80% stenosis. Home Medications Home Medications Medication Instructions Recorded Confirmed Type aspirin 81 mg PO HS 11/23/19 11/23/19 History atorvastatin 80 mg PO QAM 11/23/19 11/23/19 History carvedilol 3.125 mg PO BID 11/23/19 11/23/19 History cholecalciferol (vitamin D3) 25 mcg PO QAM 11/23/19 11/23/19 History [Vitamin D3] doxazosin 4 mg PO HS 11/23/19 11/23/19 History lisinopril 10 mg PO BID 11/23/19 11/23/19 History lorazepam 0.5 mg PO BID PRN 11/23/19 11/23/19 History nitroglycerin 0.4 mg SUBLINGUAL UD PRN 11/23/19 11/23/19 History Allergies Allergy/AdvReac Type Severity Reaction Status Date / Time No Known Allergies Allergy Unverified 11/23/19 12:08 Past Med/Surg History Family History Father , in his 70s Coronary heart disease Mother , in her 70s Cancer type? 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 and A total of 10 systems reviewed and were otherwise negative Physical Exam Vital Signs Vital Signs - 24 hr 11/23/19 10:44 11/23/19 10:46 11/23/19 11:00 Pulse Rate 55 L 61 61 Pulse Rate from SpO2 Sensor 55 L 59 L Respiratory Rate 19 20 15 Respiratory Effort / Characteristics Non-Labored Spontaneous Respiratory Depth Normal Blood Pressure 149/63 H 149/63 H 145/70 H Blood Pressure Mean 97 91 91 Pulse Oximetry 97 97 97 Oxygen Delivery Method Room Air Room Air Room Air Sepsis Recent Fever Within 48 Hours No Sepsis New/Unexplained Change in Mental Status N/A Sepsis Action Taken by Nursing No Action Required 11/23/19 11:03 11/23/19 11:25 11/23/19 11:30 Pulse Rate 55 L 53 L Pulse Rate from SpO2 Sensor 55 L 53 L Respiratory Rate 17 12 Respiratory Effort / Characteristics Respiratory Depth Blood Pressure 155/93 H 151/71 H Blood Pressure Mean 106 99 Pulse Oximetry 97 95 Oxygen Delivery Method Room Air Room Air Room Air Sepsis Recent Fever Within 48 Hours Sepsis New/Unexplained Change in Mental Status Sepsis Action Taken by Nursing 11/23/19 12:00 11/23/19 12:30 08/10/20 13:00 Pulse Rate 49 L 48 L 52 L Pulse Rate from SpO2 Sensor 48 L 49 L 52 L Respiratory Rate 13 12 15 Respiratory Effort / Characteristics Respiratory Depth Blood Pressure 142/66 H 140/68 156/77 H Blood Pressure Mean 73 74 81 Pulse Oximetry 96 95 99 Oxygen Delivery Method Room Air Room Air Room Air Sepsis Recent Fever Within 48 Hours Sepsis New/Unexplained Change in Mental Status Sepsis Action Taken by Nursing Constitutional: Vital signs reviewed. Eyes: Pupils are equal round reactive to light. Conjunctiva are noninjected. ENT: Pharynx is clear without erythema or exudate. Mucous membranes are moist. Neck supple without meningeal signs. Respiratory: Clear to auscultation bilaterally. Breath sounds are equal bilaterally. Cardiovascular: Regular rate and rhythm. No rubs or gallops. GI: Soft, nondistended and nontender. Bowel sounds are present. Musculoskeletal: No peripheral edema. No lower extremity tenderness. Integumentary: No cyanosis. or jaundice. Neurological: The patient is awake and alert. No focal deficits. Psychiatric: Normal affect. Not anxious appearing. Course Administered Medications Sodium Chloride (Nss 1000ml) 1,000 mls @ 100 mls/hr IV .Q10H ROBER Stop: 11/24/19 00:10 Last Admin: 11/23/19 14:39 Dose: 100 mls/hr Documented by: [id number] Discontinued Medications Fentanyl Citrate (Fentanyl Citrate) 50 mcg IV NOW STA Stop: 11/23/19 11:04 Last Admin: 11/23/19 11:16 Dose: 50 mcg Documented by: [id number] Nitroglycerin (Nitro-Bid 2%) 0.5 inch EXT NOW ONE Stop: 11/23/19 11:41 Last Admin: 11/23/19 11:52 Dose: 0.5 inch Documented by: [id number] Ondansetron HCl (Zofran) 4 mg IV NOW STA Stop: 11/23/19 11:04 Last Admin: 11/23/19 11:16 Dose: 4 mg Documented by: [id number] Medical Decision Making Differential Diagnosis Unstable angina, [place], GERD, pleurisy, anxiety Medical Records Attestation: I reviewed the patient's medical records. The patient was admitted to the hospital in 2017 for chest pain and syncope. He had a negative dobutamine stress test at that time and was discharged home. He had a CT angiogram of the chest at that time which was negative for PE. Home Medications Current Medication List: was personally reviewed by me Laboratory Data Attestation: I reviewed the patient's lab results. Result diagrams: 11/23/19 10:56 11/23/19 10:56 Lab Results 11/23/19 11/23/19 11/23/19 Range/Units 10:56 10:56 10:56 WBC 7.77 (4.8-10.8) K/uL RBC 4.08 L (4.7-6.1) M/uL Hgb 12.6 L (14.0-18.0) g/dL Hct 37.4 L (42-52) % MCV 91.7 (80-100) fL MCH 30.9 (25-34) pg MCHC 33.7 (32-36) g/dL RDW Std Deviation 42.8 (36.4-46.3) fL RDW Coeff of Freddy 12.6 (11.5-14.5) % Plt Count 182 (130-400) K/uL MPV 11.2 H (7.4-10.4) fL Immature Gran % (Auto) 0.3 % Neut % (Auto) 75.6 % Lymph % (Auto) 15.2 % Carbon % (Auto) 6.0 % Eos % (Auto) 2.8 % Baso % (Auto) 0.1 % Neut # (Auto) 5.87 (1.4-6.5) K/uL Lymph # (Auto) 1.18 L (1.2-3.4) K/uL Carbon # (Auto) 0.47 (0.11-0.59) K/uL Eos # (Auto) 0.22 (0-0.5) K/uL Baso # (Auto) 0.01 (0-0.2) K/uL Immature Gran # (Auto) 0.02 (0.00-0.02) K/uL PT 10.9 (9.0-12.0) Seconds INR 1.0 (0.9-1.1) APTT 24.6 (21.0-31.0) Seconds PTT Ratio 0.9 Sodium 141 (136-145) mmol/L Potassium 3.9 (3.5-5.1) mmol/L Chloride 108 H (98-107) mmol/L Carbon Dioxide 28 (21-32) mmol/L Anion Gap 5.0 (3-11) BUN 15 (7-18) mg/dl Creatinine 1.13 (0.6-1.4) mg/dl Est Cr Clr Drug Dosing 56.4 ml/min Est GFR ( Amer) 71.8 Est GFR (Non-Af Amer) 61.9 BUN/Creatinine Ratio 12.8 (10-20) Glucose 102 H (70-99) mg/dl Calcium 8.4 L (8.5-10.1) mg/dl Total Bilirubin 0.7 (0.2-1) mg/dl AST 24 (15-37) U/L ALT 29 (12-78) U/L Alkaline Phosphatase 134 H (45-117) U/L Troponin I < 0.015 (0-0.045) ng/ml Total Protein 6.2 L (6.4-8.2) gm/dl Albumin 3.4 (3.4-5.0) gm/dl Globulin 2.8 (2.5-4.0) gm/dl Albumin/Globulin Ratio 1.2 (0.9-2) Imaging Data Radiologist's Impression: XR chest 1V portable CLINICAL HISTORY: Chest Pain dyspnea COMPARISON STUDY: 11/25/2016 FINDINGS: The bones soft tissues and hemidiaphragms are normal. The cardiomediastinal silhouette is normal. The lungs are clear. The pulmonary vasculature is normal. IMPRESSION: Negative chest. ACT 112: Negative or not required by law. The above report was generated using voice recognition software. It may contain grammatical, syntax or spelling errors. Electronically signed by: Heber Bell M.D. 11/23/2019 11:27 AM ECG Data Attestation: I personally reviewed and interpreted this ECG as follows: Indication: + chest pain Rate (beats per minute): 64 Rhythm: + normal sinus ECG Intervals/blocks: + Normal QT ECG ST segments: no ST elevation ECG Findings: + Q waves (In lead III only); no PVCs Comparison ECG Date: from (November 26, 2016) Change: no significant change Blood Pressure Blood Pressure Findings: Elevated blood pressure Blood Pressure Disposition: Referred to patients primary care provider MDM Narrative I did evaluate the patient as noted above. IV access was established. I did treat him with IV fentanyl and Zofran. I did place an order for continuous cardiac monitoring. The monitor showed normal sinus rhythm at a rate of 60. I did order and personally review the patient's 12-lead EKG as described above. He has no acute ischemic changes. I did order and personally reviewed the images of the patient's chest x-ray as described above. His chest x-ray is unremarkable. I did order and review the patient's blood work as noted in the electronic medical record. Hemoglobin is 12.6. He has no leukocytosis. Electrolytes are unremarkable other than a chloride of 108. Troponin is negative. On reassessment the patient's chest pain is relieved. I did treat him with nitroglycerin paste. He already took an aspirin today. I did recommend hospitalization for further care and evaluation and repeat cardiac biomarkers. He was agreeable and I discussed the case with the hospitalist and top case assembler. Impression & Plan Chest pain Discharge Plan Visit Data *Final* Discharge Date/Time: 11/23/19 13:55 Chief Complaint: Cardiac Assessment Stated Complaint: CHEST PRESSURE,3 STENTS ED Provider: Charles Sanchez Discharge Problem: Chest pain Patient Disposition: Admitted As Inpatient Discharge Instructions Interventions: ED Discharge Assessment Last Done: 11/23/19 13:55
[2019-11-23 11:25] LABS: Basophils # (auto) 0.01 K/uL (0-0.2); Basophils % (auto) 0.1 %; Eosinophils # (auto) 0.22 K/uL (0-0.5); Eosinophils % (auto) 2.8 %; Hematocrit (blood only) 37.4 % (42-52); Hemoglobin 12.6 g/dL (14.0-18.0); Immature Granulocytes # (auto) 0.02 K/uL (0.00-0.02); Immature Granulocytes % (auto) 0.3 %; Lymphocytes # (auto) 1.18 K/uL (1.2-3.4); Lymphocytes % (auto) 15.2 %; Mean Corpuscular Hemoglobin 30.9 pg (25-34); Mean Corpuscular Hgb Conc 33.7 g/dL (32-36); Mean Corpuscular Volume 91.7 fL (80-100); Mean Platelet Volume 11.2 fL (7.4-10.4); Monocytes # (auto) 0.47 K/uL (0.11-0.59); Neutrophils # (auto) 5.87 K/uL (1.4-6.5); Neutrophils % (auto) 75.6 %; Platelet Count 182 K/uL (130-400); RDW Coefficient of Variation 12.6 % (11.5-14.5); RDW Standard Deviation 42.8 fL (36.4-46.3); Red Blood Count 4.08 M/uL (4.7-6.1); White Blood Count 7.77 K/uL (4.8-10.8)
--- NOTE | 2019-11-23 11:28 | XRay Report ---
XR chest 1V portable CLINICAL HISTORY: Chest Pain dyspnea COMPARISON STUDY: 11/25/2016 FINDINGS: The bones soft tissues and hemidiaphragms are normal. The cardiomediastinal silhouette is n ormal. The lungs are clear. The pulmonary vasculature is normal. IMPRESSION: Negative chest. ACT 112: Negative or not required by law. The above report was generated using voice recognition software. It may contain grammatical, syntax or spelling errors. Electronically signed by: Heber Bell M.D. 11/23/2019 11:27 AM
[2019-11-23 11:36] LABS: Partial Thromboplastin Ratio 0.9; Partial Thromboplastin Time 24.6 Seconds (21.0-31.0); Prothrombin Time 10.9 Seconds (9.0-12.0)
[2019-11-23] MEDS ORDERED: NITROGLYCERIN 2% OINTMENT 30GM TUBE EXT ONE (11:40)
[2019-11-23 11:42] LABS: Alanine Aminotransferase 29 U/L (12-78); Albumin Level 3.4 gm/dl (3.4-5.0); Aspartate Aminotransferase 24 U/L (15-37); BUN Creatinine Ratio 12.8 (10-20); Blood Urea Nitrogen 15 mg/dl (7-18); Calcium 8.4 mg/dl (8.5-10.1); Carbon Dioxide 28 mmol/L (21-32); Chloride 108 mmol/L (98-107); Creatinine Clr Calc Pharmacy 56.4 ml/min; Est GFR (African American) 71.8; Est GFR (Non-African American) 61.9; Glucose 102 mg/dl (70-99); Potassium 3.9 mmol/L (3.5-5.1); Sodium 141 mmol/L (136-145)
[2019-11-23 11:46] LABS: Albumin Globulin Ratio 1.2 (0.9-2); Alkaline Phosphatase 134 U/L (45-117); Bilirubin,Total 0.7 mg/dl (0.2-1); Globulin 2.8 gm/dl (2.5-4.0); Total Protein 6.2 gm/dl (6.4-8.2); Troponin I < 0.015 ng/ml (0-0.045)
--- NOTE | 2019-11-23 12:44 | History & Physical Report ---
Date of Service November 23, 2019 Assessment & Plan (1) Chest pain: His symptoms are concerning for ischemic chest pain given his prior cardiac events and known CAD. He also stated his symptoms were similar to past episodes of angina. Interestingly, however, his symptoms did NOT ez with SL nitro x 3. Thus far his cxr, EKG, and labs including troponin are all negative. Plan - * serial troponins * 2D echo * nitropaste q6h * cont BB * cont HOLLAND * aspirin 81mg daily * high-intensity statin as previous * check lipids, hemoglobin a1c in am * formal cardiology consultation requested - stress test vs cath? defer to cardiology * NPO after MN for additional testing * hold on heparin infusion if no further symptoms and if troponins remain negative Records were obtained from [facility] including his heart cath in 2017. See HPI for details. (2) Coronary artery disease: See above. Cont aspirin, BB, HOLLAND, statin. Place on telemetry. Echo. (3) BPH (benign prostatic hyperplasia): no issues at this time. cont alpha grant. (4) Mixed hyperlipidemia: Cont statin. Check lipid profile in am. 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 Creatinine stable. Repeat BMP in am. (6) DVT prophylaxis: lovenox 40mg daily updated at bedside place on observation status of note - patient without symptoms/signs of COVID-19 thus defer on testing for now History of Present Illness Chief Complaint: chest pain Primary Care Provider: Darvin Cunningham 79yo male with h/o CAD s/p inferior AMI in 2011 s/p RCA stent x 2, then repeat heart cath in November 2016 with additional RCA stent placement - who presents from a [place] [place]" with chest pain. He arrived to the camp on Saturday of last week. He had an episode of chest pain yesterday as well as today. About 9am this morning he had "5 to 10 pounds of pressure on my chest" while he was sitting on a park bench. Pain did not radiate to the arms or jaw/neck. Took 3 SL nitros without any relief of symptoms. The pain/pressure this am was similar to past episodes of angina. He did not have associated dyspnea but developed nausea when he arrived to [facility]. By the time of my assessment his chest pain was down to 0-1/10 on pain scale. Yesterday at the same [employer] [place] he was feeling warm because of the high temperatures outside. He did have chest pressure yesterday but not as severe as today. He had mentioned some dizziness to the ER attending but denied such for me. Denies fevers, chills, sick contacts, dizziness, lightheadedness, vomiting. Patient is from [facility] and his PCP is in [place] at [facility]. His agricultural research engineer is in [place] at [facility] (Dr Ha Craig). Last stress test - uncertain. Last heart catheterization - at [facility] - November 2016. Findings - * Left main - no disease * LAD - no disease * Circumflex - non-dominant, 20% distal lesion * RCA - dominant - 80% bifurcation lesion in the right PDA; mid-RCA stents from 2011 patent; s/p DEMETRICE to 80% lesion Prior to the last 48 hours he has had some intermittent chest pain over the last 1-2 months. Allergies Allergy/AdvReac Type Severity Reaction Status Date / Time No Known Allergies Allergy Unverified 11/23/19 12:08 Home Medications Home Medications Medication Instructions Recorded Confirmed Type aspirin 81 mg PO HS 11/23/19 11/23/19 History atorvastatin 80 mg PO QAM 11/23/19 11/23/19 History carvedilol 3.125 mg PO BID 11/23/19 11/23/19 History cholecalciferol (vitamin D3) 25 mcg PO QAM 11/23/19 11/23/19 History [Vitamin D3] doxazosin 4 mg PO HS 11/23/19 11/23/19 History lisinopril 10 mg PO BID 11/23/19 11/23/19 History lorazepam 0.5 mg PO BID PRN 11/23/19 11/23/19 History nitroglycerin 0.4 mg SUBLINGUAL UD PRN 11/23/19 11/23/19 History Past Med/Surg History Medical History (Updated 11/23/19 @ 22:28 by Kofi Wrgiht) 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 Left-sided. Renal cell carcinoma. Family History Father , in his 70s Coronary heart disease Mother , in her 70s Cancer type? Social History (Updated 11/23/19 @ 13:02 by Kofi Wright) Smoking Status: Never smoker Hx Alcohol Use: No Hx Substance Use: No Preferred Language: Belarusian Communication Ability: Effective Home Energy Auditor Required: No Beliefs That Will Affect Care: None marital status: Current Living Situation: Spouse current occupational status: retired current occupation: worked at [employer] How many Children do You have: 2 Other Information That Helps Us Care for You: No other: lives in [place], [place] with Feels Safe at Home: Yes Safety Concerns: Feels Safe At This Time Review of Systems Constitutional: no fever, no chills, no fatigue, no anorexia and no weight loss Eyes: no worsening vision Ear, Nose, Mouth, Throat: no post nasal drip and no sore throat no loss of taste or smell Respiratory: no cough, no dyspnea and no dyspnea on exertion Cardiovascular: + chest pain; no orthopnea, no paroxysmal nocturnal dyspnea and no edema Gastrointestinal: + nausea; no abdominal pain, no vomiting and no diarrhea/loose stools Genitourinary: no dysuria Musculoskeletal: no joint pain, no stiffness and no myalgia Integumentary: no rash Neurologic: no localized weakness and no numbness Psychiatric: no depression and no anxiety Endocrine: no diabetes Hematologic / Lymphatic: no easy bleeding and no easy bruising Physical Exam Constitutional: well developed and well nourished; no acute distress and no altered mental status Eyes: PERRL ENMT: external ear and nose normal, oropharynx normal Neck: trachea midline, no thyromegaly Respiratory: normal respiratory effort, lungs clear to auscultation Cardiovascular: Rate/Rhythm: regular rate and regular rhythm Heart Sounds: normal S1 and normal S2; no murmur Vessels: posterior tibial pulses present and dorsalis pedis pulses present; no JVD Extremities: no edema Gastrointestinal (Abdomen): normal bowel sounds, soft, nontender, no hepatosplenomegaly Musculoskeletal: no cyanosis or clubbing, extremities motor strength 5/5 Skin: no rashes, warm and dry Neurologic: deep tendon reflexes 2+ bilaterally and moves all extremities Psychiatric: A+Ox3, euthymic affect Lymphatic: no cervical lymphadenopathy Results & Data Results & Data ([facility]) Vital Signs (Past 12 Hours) Vital Signs Pulse Resp BP Pulse Ox 11/23/19 10:46 61 20 149/63 H 97 Laboratory Results Laboratory Results - last 24 hr 11/23/19 11/23/19 11/23/19 10:56 10:56 10:56 WBC 7.77 RBC 4.08 L Hgb 12.6 L Hct 37.4 L MCV 91.7 MCH 30.9 MCHC 33.7 RDW Std Deviation 42.8 RDW Coeff of Freddy 12.6 Plt Count 182 MPV 11.2 H Immature Gran % (Auto) 0.3 Neut % (Auto) 75.6 Lymph % (Auto) 15.2 [place] % (Auto) 6.0 Eos % (Auto) 2.8 Baso % (Auto) 0.1 Neut # (Auto) 5.87 Lymph # (Auto) 1.18 L [place] # (Auto) 0.47 Eos # (Auto) 0.22 Baso # (Auto) 0.01 Immature Gran # (Auto) 0.02 PT 10.9 INR 1.0 APTT 24.6 PTT Ratio 0.9 Sodium 141 Potassium 3.9 Chloride 108 H Carbon Dioxide 28 Anion Gap 5.0 BUN 15 Creatinine 1.13 Est Cr Clr Drug Dosing 56.4 Est GFR ( Amer) 71.8 Est GFR (Non-Af Amer) 61.9 BUN/Creatinine Ratio 12.8 Glucose 102 H Calcium 8.4 L Total Bilirubin 0.7 AST 24 ALT 29 Alkaline Phosphatase 134 H Troponin I < 0.015 Total Protein 6.2 L Albumin 3.4 Globulin 2.8 Albumin/Globulin Ratio 1.2 11/23/19 16:43 WBC RBC Hgb Hct MCV MCH MCHC RDW Std Deviation RDW Coeff of Freddy Plt Count MPV Immature Gran % (Auto) Neut % (Auto) Lymph % (Auto) [place] % (Auto) Eos % (Auto) Baso % (Auto) Neut # (Auto) Lymph # (Auto) [place] # (Auto) Eos # (Auto) Baso # (Auto) Immature Gran # (Auto) PT INR APTT PTT Ratio Sodium Potassium Chloride Carbon Dioxide Anion Gap BUN Creatinine Est Cr Clr Drug Dosing Est GFR ( Amer) Est GFR (Non-Af Amer) BUN/Creatinine Ratio Glucose Calcium Total Bilirubin AST ALT Alkaline Phosphatase Troponin I < 0.015 Total Protein Albumin Globulin Albumin/Globulin Ratio Diagnostic Findings cxr: no infiltrates EKG: NSR, Q wave lead III, no ST changes Code Status & VTE Plan Code Status full VTE Prophylaxis Plan VTE Prophylaxis will be ordered: Yes PG Care Time/CCT Total # of Minutes Spent Total Time Spent with Patient: Total time spent is greater than 50% in stroke program coordinator rdination of care (as documented) at patient's floor/unit and/or counseling patient: Coding Level of Care Code 17961 OBS Care - Level 3 Diagnoses Chest pain R07.9 Chest pain type: unspecified Coronary artery disease I25.10 Coronary Disease-Associated Artery/Lesion type: [place] artery [place] vs. transplanted heart: [place] heart Associated angina: angina presence unspecified BPH (benign prostatic hyperplasia) N40.0 Lower urinary tract symptom presence: symptoms absent Mixed hyperlipidemia E78.2 H/O partial nephrectomy Z90.5 DVT prophylaxis Z29.9 (1) BPH (benign prostatic hyperplasia) Lower urinary tract symptom presence: symptoms absent Qualified Code(s): N40.0 - Benign prostatic hyperplasia without lower urinary tract symptoms (2) Coronary artery disease Coronary Disease-Associated Artery/Lesion type: [place] artery [place] vs. transplanted heart: [place] heart Associated angina: angina presence unspecified Qualified Code(s): I25.10 - Atherosclerotic heart disease of [place] coronary artery without angina pectoris (3) Chest pain Chest pain type: unspecified Qualified Code(s): R07.9 - Chest pain, unspecified
[2019-11-23] MEDS ORDERED: MoRPHine SULFATE 2 MG/ML CARP IV PRN (14:11)
[2019-11-23] MEDS ORDERED: ONDANSETRON INJ 2 MG/ML 2 ML VIAL IV PRN (14:11)
[2019-11-23] MEDS ORDERED: ALUMINUM/MAGNESIUM SUSP 30 ML UDC PO PRN (14:11)
[2019-11-23] MEDS ORDERED: LORazepam 0.5 MG TAB PO PRN (14:11)
[2019-11-23] MEDS ORDERED: SODIUM CHLORIDE 0.9% 1000ML 1,000 ML IV SCH (14:11)
[2019-11-23] MEDS ORDERED: NITROGLYCERIN SL 0.4 MG/TAB TAB SL PRN (14:11)
[2019-11-23] MEDS ORDERED: MAGNESIUM HYDROXIDE SUSP 30 ML UDC PO PRN (14:11)
--- NOTE | 2019-11-23 16:46 | XCELERA ---
[id number]
[2019-11-23] MEDS: NITROGLYCERIN 2% OINTMENT 30GM TUBE EXT SCH (17:46)
[2019-11-23] MEDS: ACETAMINOPHEN 325 MG TAB PO PRN (19:50)
[2019-11-23] MEDS: carvediloL 3.125 MG TAB PO SCH (20:30)
[2019-11-23] MEDS: lisinopriL 10 MG TAB PO SCH (20:32)
[2019-11-23] MEDS ORDERED: ENOXAPARIN INJ 40 MG/0.4 ML SYR SQ SCH (21:00)
[2019-11-23] MEDS ORDERED: DOXAZosin MESYLATE 4 MG TAB PO SCH (21:00)
[2019-11-23] MEDS ORDERED: ASPIRIN 81 MG ECTAB PO SCH (21:00)
--- NOTE | 2019-11-23 22:37 | Electrocardiogram Report ---
Test Reason : Blood Pressure : / mmHG Vent. Rate : 064 BPM Atrial Rate : 064 BPM P-R Int : 188 ms QRS Dur : 074 ms QT Int : 412 ms P-R-T Axes : 021 005 043 degrees QTc Int : 425 ms Normal sinus rhythm Cannot rule out Anterior infarct , age undetermined Abnormal ECG When compared with ECG of 26-NOV-2016 08:11, No significant change was found Confirmed by Bryson Najera ([id number]) on 11/23/2019 10:36:46 PM Referred By: REFERRED SELF Confirmed By:Bryson Najera
[2019-11-24] MEDS: NITROGLYCERIN 2% OINTMENT 30GM TUBE EXT SCH ×2 (01:03→06:46)
[2019-11-24] MEDS: ACETAMINOPHEN 325 MG TAB PO PRN (07:55)
[2019-11-24] MEDS: lisinopriL 10 MG TAB PO SCH (07:59)
[2019-11-24 08:00] LABS: BUN Creatinine Ratio 11.9 (10-20); Calcium 8.4 mg/dl (8.5-10.1); Creatinine Clr Calc Pharmacy 59.8 ml/min; Est GFR (African American) 80.3; Est GFR (Non-African American) 69.3; Potassium 4.3 mmol/L (3.5-5.1)
[2019-11-24] MEDS: carvediloL 3.125 MG TAB PO SCH (08:04)
[2019-11-24] MEDS ORDERED: ATORVASTATIN 40 MG TAB PO SCH (09:00)
--- NOTE | 2019-11-24 09:14 | Hospitalist Progress Note ---
Date of Service November 24, 2019 Assessment & Plan (1) Chest pain: His symptoms are concerning for ischemic chest pain given his prior cardiac events and known CAD. He also stated his symptoms were similar to past episodes of angina. Interestingly, however, his symptoms did NOT ez with SL nitro x 3. Thus far his cxr, EKG, and labs including troponin are all negative. Plan - * serial troponins * 2D echo * nitropaste q6h * cont BB * cont HOLLAND * aspirin 81mg daily * high-intensity statin as previous * check lipids, hemoglobin a1c in am * formal cardiology consultation requested - stress test vs cath? defer to cardiology * NPO after MN for additional testing * hold on heparin infusion if no further symptoms and if troponins remain negative Records were obtained from [facility] including his heart cath in 2017. See HPI for details. (2) Coronary artery disease: See above. Cont aspirin, BB, HOLLAND, statin. Place on telemetry. Echo. (3) BPH (benign prostatic hyperplasia): no issues at this time. cont alpha grant. (4) Mixed hyperlipidemia: Cont statin. Check lipid profile in am. 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 Creatinine stable. Repeat BMP in am. (6) DVT prophylaxis: lovenox 40mg daily place on observation status of note - patient without symptoms/signs of COVID-19 thus defer on testing for now Admission and Anticipated Discharge Date Admission Date: November 23, 2019 Results & Data Results & Data ([facility]) Vital Signs (Past 12 Hours) Vital Signs Temp Pulse Pulse Resp BP Pulse Ox 11/24/19 07:18 61 11/24/19 07:11 98.6 F 52 L 18 141/64 H 94 11/24/19 04:05 98.1 F 53 L 15 128/54 L 95 11/23/19 23:05 52 L 11/23/19 22:53 98.8 F 50 L 15 134/55 L 95 PG Care Time/CCT Total # of Minutes Spent Total Time Spent with Patient: Total time spent is greater than 50% in coordination of care (as documented) at patient's floor/unit and/or counseling patient: Coding Diagnoses Chest pain R07.9 Chest pain type: unspecified Coronary artery disease I25.10 Coronary Disease-Associated Artery/Lesion type: [place] artery [place] vs. transplanted heart: [place] heart Associated angina: angina presence unspecified BPH (benign prostatic hyperplasia) N40.0 Lower urinary tract symptom presence: symptoms absent Mixed hyperlipidemia E78.2 H/O partial nephrectomy Z90.5 DVT prophylaxis Z29.9 (1) Chest pain Chest pain type: unspecified Qualified Code(s): R07.9 - Chest pain, unspecified (2) Coronary artery disease Coronary Disease-Associated Artery/Lesion type: [place] artery [place] vs. transplanted heart: [place] heart Associated angina: angina presence unspecified Qualified Code(s): I25.10 - Atherosclerotic heart disease of [place] coronary artery without angina pectoris (3) BPH (benign prostatic hyperplasia) Lower urinary tract symptom presence: symptoms absent Qualified Code(s): N40.0 - Benign prostatic hyperplasia without lower urinary tract symptoms
[2019-11-24 09:19] LABS: Estimated Average Glucose 117 mg/dl; Hemoglobin A1C 5.7 % (4.5-5.6)
[2019-11-24] MEDS ORDERED: MoRPHine SULFATE 2 MG/ML CARP IV PRN (10:58)
[2019-11-24] MEDS ORDERED: KETOROLAC TROMETHAMINE 15 MG/ML VIAL IV ONE (10:58)
--- NOTE | 2019-11-24 14:56 | Cardiology Consultation ---
Date of Consultation November 24, 2019 Assessment & Plan (1) Chest pain: (2) Coronary artery disease: (3) Mixed hyperlipidemia: (4) Hypertension: ASSESSMENT/PLAN: 1. Chest pain: Chest pain is atypical and more consistent with noncardiac chest pain given hours of duration despite negative cardiac enzymes and unremarkable ECG. Stress Echo recommended given his prior history. 2. CAD s/p RCA PCI x 3: Atypical chest pain but no angina. Stress echo as above. Continue aspirin 81 mg daily indefinitely. Continue beta-grant any appears to be well beta blocked. Continue HOLLAND-inhibitor. Continue high- intensity statin therapy. 3. Hypertension: Blood pressure has been consistently elevated while here. Adjust antihypertensive therapy as appropriate to optimize blood pressure control in a patient with CAD. 4. Dyslipidemia: LDL is well controlled. Continue high-intensity statin therapy. Stress ECHO Findings: Negative stress echo for ischemia. Negative stress ECG for ischemia. Target heart rate was attained. No chest pain and good exercise tolerance. 5. Disposition: No further cardiac testing recommended at this time. Recommended he follow-up with his primary aircraft machinist helper at [facility]. Echo images will be burned on a disc and sent home with him to provide to his primary aircraft machinist helper. Patient care communicated with Dr. Gastelum the primary hospitalist service. Thank you for allowing me to participate in the care of your patient. Please call for any other questions or concerns. Sincerely, Avinash Najera M.D. History of Present Illness Reason for Consultation: CAD and Chest pain Requesting Physician: Dr. Wright Attending Physician: Charles Gastelum MD History of Present Illness Mr. Knight is a very pleasant 79-year-old gentleman with history significant for CAD status post RCA PCI x3, dyslipidemia, hypertension, and renal cell carcinoma status post partial left nephrectomy in 2019. He follows with Cardiology at [facility]. He reportedly had STEMI in 2012 and underwent mid RCA PCI x2 with drug-eluting stents and then repeat PCI of his RCA in 2017. He is visiting the area for a camp. For the past 1 month he has been having intermittent chest discomfort described as a substernal chest pressure which has been very mild. There has been no specific trigger and pain would typically resolve spontaneously within approximately 1 hour. Yesterday morning at approximately 9:00 a.m. with light exertion, he had more significant chest discomfort described as a substernal chest pressure rating at approximately 5/10. He took nitroglycerin x3 without relief. Symptoms persisted throughout the day until approximately 3:00 p.m. when they spontaneously resolved while here at the hospital. Despite hours of chest pain, troponins have been negative. Presenting ECG was without dynamic ST abnormality. There was no radiation of the pain. There is no associated diaphoresis or shortness of breath. He denies syncope, near-syncope, palpitations, orthopnea, PND, edema, or bleeding such as melena, hematochezia, or hematuria. He states that he is very active and walks daily. Last evening while in the hospital, he ate chicken for supper and shortly thereafter became nauseated and vomited. He has not had any recent fevers or chills. Review of systems: As above. Review of systems otherwise negative/unremarkable. Family history: Father from CAD in his 70s. Mother had cancer. Social history: Denies smoking or alcohol abuse. No drugs. He lives at home with his . They have 2 sons. He lives near [facility]. He is unaccompanied. Allergies Allergy/AdvReac Type Severity Reaction Status Date / Time No Known Allergies Allergy Unverified 11/23/19 12:08 Home Medications Home Medications Medication Instructions Recorded Confirmed Type aspirin 81 mg PO HS 11/23/19 11/23/19 History atorvastatin 80 mg PO QAM 11/23/19 11/23/19 History carvedilol 3.125 mg PO BID 11/23/19 11/23/19 History cholecalciferol (vitamin D3) 25 mcg PO QAM 11/23/19 11/23/19 History [Vitamin D3] doxazosin 4 mg PO HS 11/23/19 11/23/19 History lisinopril 10 mg PO BID 11/23/19 11/23/19 History lorazepam 0.5 mg PO BID PRN 11/23/19 11/23/19 History nitroglycerin 0.4 mg SUBLINGUAL UD PRN 11/23/19 11/23/19 History Patient History Medical History (Updated 11/24/19 @ 14:48 by Bryson Najera MD) Acute myocardial infarction due to right coronary artery occlusion STEMI, 2012, s/p DEMETRICE x 2 to mid-RCA lesion BPH (benign prostatic hyperplasia) Coronary artery disease RCA stents in 2012; repeat RCA stent 2017 Hypertension Mixed hyperlipidemia Renal cell carcinoma Surgical History H/O partial nephrectomy [facility]. Left-sided. Renal cell carcinoma. Family History Father , in his 70s Coronary heart disease Mother , in her 70s Cancer type? Social History (Updated 11/23/19 @ 13:02 by Kofi Wright) Smoking Status: Never smoker Hx Alcohol Use: No Hx Substance Use: No Preferred Language: Sinhala Communication Ability: Effective Solar Sales Representative And Assessor Required: No Beliefs That Will Affect Care: None marital status: Current Living Situation: Spouse current occupational status: retired current occupation: worked at [employer]) How many Children do You have: 2 Other Information That Helps Us Care for You: No other: lives in [place], [place] with Feels Safe at Home: Yes Safety Concerns: Feels Safe At This Time Physical Exam Physical Exam: Gen.: No acute distress. Alert and oriented. HEENT: Anicteric sclera. Neck: No JVD. No bruits. Normal carotid upstrokes bilaterally. Cardiac: PMI was Nonpalpable. No ventricular heave. Regular rate and rhythm. Normal S1-S2. No murmurs, rubs, or gallops. Pulmonary: Clear to auscultation bilaterally without wheezes, rales, or rhonchi. Abdomen: Soft, nontender, nondistended, with normoactive bowel sounds. No bruits noted. Extremities: 2+ radial pulses bilaterally. 2+ posterior tibialis pulses bilaterally. No edema or cyanosis. Psychiatric: Affect appears appropriate. Chest: Nontender to palpation. Results & Data ([facility]) Vital Signs (Past 12 Hours) Vital Signs Temp Pulse Pulse Resp BP Pulse Ox 11/24/19 11:07 36.6 C 50 L 18 153/66 H 96 11/24/19 07:18 61 11/24/19 07:11 37.0 C 52 L 18 141/64 H 94 11/24/19 04:05 36.7 C 53 L 15 128/54 L 95 Laboratory Results Laboratory Results - last 24 hr 11/23/19 11/23/19 11/24/19 16:43 22:37 07:17 Sodium 141 Potassium 4.3 Chloride 112 H Carbon Dioxide 26 Anion Gap 3.0 BUN 12 Creatinine 1.03 Est Cr Clr Drug Dosing 59.8 Est GFR ( Amer) 80.3 Est GFR (Non-Af Amer) 69.3 BUN/Creatinine Ratio 11.9 Glucose 98 Estimat Average Glucose Hemoglobin A1c Calcium 8.4 L Troponin I < 0.015 < 0.015 Triglycerides 77 Cholesterol 68 LDL Cholesterol, Calc 19 VLDL Cholesterol, Calc 15 HDL Cholesterol 34 Cholesterol/HDL Ratio 2 11/24/19 07:17 Sodium Potassium Chloride Carbon Dioxide Anion Gap BUN Creatinine Est Cr Clr Drug Dosing Est GFR ( Amer) Est GFR (Non-Af Amer) BUN/Creatinine Ratio Glucose Estimat Average Glucose 117 Hemoglobin A1c 5.7 H Calcium Troponin I Triglycerides Cholesterol LDL Cholesterol, Calc VLDL Cholesterol, Calc HDL Cholesterol Cholesterol/HDL Ratio Diagnostic Findings ECGs personally reviewed: ECG 11/23/2019 at 10:49 a.m.: NSR 64 bpm. Cannot rule out anterior infarct. ECG 11/24/2019 at 7:46 a.m.: Sinus bradycardia 51 bpm. Cannot exclude anterior infarct. Echo 11/23/2019: Normal LV size, wall motion, systolic function. EF 60-65%. Moderate LVH. Mild left atrial dilation. Mild MR. RVSP 36. Chest x-ray 11/23/2019: No acute abnormalities per Radiology. Medications Administered Current Inpatient Medications Acetaminophen (Tylenol) 650 mg PO Q4H PRN PRN Reason: Pain or Fever Stop: 12/23/19 14:10 Last Admin: 11/24/19 07:55 Dose: 650 mg Documented by: Al Hydrox/Mg Hydrox/Simethicone (Maalox) 15 ml PO Q4H PRN PRN Reason: Dyspepsia Stop: 12/23/19 14:10 Aspirin (Ecotrin Ectab) 81 mg PO HS [facility] Stop: 12/23/19 20:59 Last Admin: 11/23/19 20:31 Dose: 81 mg Documented by: Atorvastatin Calcium (Lipitor) 80 mg PO QAM [facility] Stop: 12/24/19 08:59 Last Admin: 11/24/19 07:59 Dose: 80 mg Documented by: Carvedilol (Coreg) 3.125 mg PO BID [facility] Stop: 12/23/19 20:59 Last Admin: 11/24/19 08:04 Dose: Not Given Documented by: Doxazosin Mesylate (Cardura) 4 mg PO HS [facility] Stop: 12/23/19 20:59 Last Admin: 11/23/19 20:29 Dose: 4 mg Documented by: Enoxaparin Sodium (Lovenox) 40 mg SQ Q24H [facility] Stop: 12/23/19 13:14 Last Admin: 11/23/19 20:32 Dose: 40 mg Documented by: Lisinopril (Zestril) 10 mg PO BID [facility] Stop: 12/23/19 20:59 Last Admin: 11/24/19 07:59 Dose: 10 mg Documented by: Lorazepam (Ativan) 0.5 mg PO BID PRN PRN Reason: Anxiety Stop: 12/23/19 14:10 Magnesium Hydroxide (Milk Of Magnesia) 30 ml PO Q12H PRN PRN Reason: Constipation Stop: 12/23/19 14:10 Morphine Sulfate (Morphine Sulfate) 2 mg IV Q30M PRN PRN Reason: Mild Pain Stop: 12/07/19 14:10 Nitroglycerin (Nitrostat) 0.4 mg SL UD PRN PRN Reason: Chest Pain Stop: 12/23/19 14:10 Ondansetron HCl (Zofran) 4 mg IV Q6H PRN PRN Reason: Nausea Stop: 12/23/19 14:10 Last Admin: 11/23/19 17:42 Dose: 4 mg Documented by: PG Care Time/CCT Total # of Minutes Spent Total Time Spent with Patient: Total time spent is greater than 50% in coordination of care (as documented) at patient's floor/unit and/or counseling patient: Coding Level of Care Code 81388 Office/Outpt Visit, New Diagnoses Chest pain R07.9 Chest pain type: unspecified Coronary artery disease I25.10 Coronary Disease-Associated Artery/Lesion type: [place] artery [place] vs. transplanted heart: [place] heart Associated angina: angina presence unspecified Mixed hyperlipidemia E78.2 Hypertension I10 (1) Chest pain Chest pain type: unspecified Qualified Code(s): R07.9 - Chest pain, unspecified (2) Coronary artery disease Coronary Disease-Associated Artery/Lesion type: [place] artery [place] vs. transplanted heart: [place] heart Associated angina: angina presence unspecified Qualified Code(s): I25.10 - Atherosclerotic heart disease of [place] coronary artery without angina pectoris
--- NOTE | 2019-11-24 15:09 | XCELERA ---
[id number]
--- NOTE | 2019-11-24 16:00 | Discharge Summary ---
Date of Service November 24, 2019 Admission HPI Per Admitting Provider 79yo male with h/o CAD s/p inferior AMI in 2012 s/p RCA stent x 2, then repeat heart cath in November 2016 with additional RCA stent placement - who presents from a local "[employer] [place]" with chest pain. He arrived to the camp on Saturday of last week. He had an episode of chest pain yesterday as well as today. About 9am this morning he had "5 to 10 pounds of pressure on my chest" while he was sitting on a park bench. Pain did not radiate to the arms or jaw/neck. Took 3 SL nitros without any relief of symptoms. The pain/pressure this am was similar to past episodes of angina. He did not have associated dyspnea but developed nausea when he arrived to [facility] ER. By the time of my assessment his chest pain was down to 0-1/10 on pain scale. Yesterday at the same [employer] camp he was feeling warm because of the high temperatures outside. He did have chest pressure yesterday but not as severe as today. He had mentioned some dizziness to the ER attending but denied such for me. Denies fevers, chills, sick contacts, dizziness, lightheadedness, vomiting. Patient is from [facility] and his PCP is in [place] at [facility]. His bss solution architect is in [place] at [facility] (Dr Ha Craig). Last stress test - uncertain. Last heart catheterization - at [facility] - November 2016. Findings - * Left main - no disease * LAD - no disease * Circumflex - non-dominant, 20% distal lesion * RCA - dominant - 80% bifurcation lesion in the right PDA; mid-RCA stents from 2011 patent; s/p DEMETRICE to 80% lesion Prior to the last 48 hours he has had some intermittent chest pain over the last 1-2 months. Principal Diagnosis non cardiac chest pain, negative stress testing suboptimal control of blood pressure Discharge Exam The patient appeared well Vital signs as documented. Lungs are clear to auscultation and appear unlabored Cardiac exam, Rhythm is regular.. No murmurs, rubs or gallops. Abdominal exam reveals normal bowel sounds, soft non tender, no masses Extremities are nonedematous and both pedal pulses are normal. Neurologic exam is alert and oriented, no focal loss of strength or sensation Skin is without bruises or rashes Psychologically is without concerns for anxiety or depression Discharge Data Allergies Allergy/AdvReac Type Severity Reaction Status Date / Time No Known Allergies Allergy Unverified 11/23/19 12:08 Consultations 11/23/19 12:08 ED Decision to Admit Stat 11/23/19 14:11 Consult Cardiology Routine Hospital Course (1) Chest pain: He has had prior cardiac events and known CAD. He also stated his symptoms were similar to past episodes of angina. However, his symptoms did NOT ez with SL nitro x 3. Negative stress echo testing to exclude CAD, maybe room for better blood pressure control * cont BB * cont HOLLAND * aspirin 81mg daily * high-intensity statin as previous Records were obtained from [facility] including his heart cath in 2017. will scan stress test to send to [facility] [place] (2) Coronary artery disease: Cont aspirin, BB, HOLLAND, statin. (3) BPH (benign prostatic hyperplasia): no issues at this time. cont alpha grant. (4) Mixed hyperlipidemia: Cont statin. 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 Creatinine stable. Total Time Total Time Spent Total Time Spent (In Minutes): It required greater than 30 minutes to prepare this patient for discharge Discharge Plan Discharge Items Patient Disposition: Home - Self-Care Reason For Visit: CHEST PAIN,H/O CAD Discharge Diagnosis: chest pain, with normal stress testing Activity: Resume your previous activity Non-emergency contact: Primary Care Provider and Retail Mortgage Banker Call non-emergency contact if: you have any medication questions and your symptoms worsen Follow-up/Referrals: Darvin Cunningham [Primary Care Provider] - Diet: Low Sodium (2gm) Addtl Attending Provider Instructions: please see your family doctor to discuss blood pressure control please follow a low salt diet Pending Studies at Discharge: No Stand-Alone Forms: [email or web address], Smoking Cessation Medications and DC Order Prescriptions: Continued atorvastatin 80 mg tablet 80 mg PO QAM RF: 0 aspirin 81 mg Tablet,Delayed Release (Dr/Ec) 81 mg PO HS RF: 0 lorazepam 0.5 mg Tablet 0.5 mg PO BID PRN (Reason: Anxiety) RF: 0 lisinopril 10 mg tablet 10 mg PO BID RF: 0 nitroglycerin 0.4 mg tablet, sublingual 0.4 mg sublingual UD PRN (Reason: Chest Pain) RF: 0 doxazosin 4 mg tablet 4 mg PO HS RF: 0 cholecalciferol (vitamin D3) [Vitamin D3] 25 mcg (1,000 unit) Capsule 25 mcg PO QAM RF: 0 Changed carvedilol 3.125 mg tablet 3.125 mg PO BID Qty: 60 RF: 6 Discharge Orders: Discharge Order (Routine); Ordered 11/24/19 Ordered By: Charles Gastelum Admission Data Admit Date/Time: 11/23/19 13:04 Attending Provider: Charles Gastelum Admit Provider: Kofi Wright Primary Care Provider: Darvin Cunningham Other Providers: Kofi Wright ; Bryson Najera Other Interventions: Discharge Summary Assessment (RN) Last Done: 11/24/19 15:05 DC Date/Time DO NOT enter until pt leaves facility: 11/24/19 15:55 Coding Level of Care Code D/C Day Management >30 mins Diagnoses Chest pain R07.9 Chest pain type: unspecified Coronary artery disease I25.10 Coronary Disease-Associated Artery/Lesion type: citizen [place] artery [place] vs. transplanted heart: citizen [place] heart Associated angina: angina presence unspecified BPH (benign prostatic hyperplasia) N40.0 Lower urinary tract symptom presence: symptoms absent Mixed hyperlipidemia E78.2 H/O partial nephrectomy Z90.5
--- NOTE | 2019-11-25 23:46 | Electrocardiogram Report ---
Test Reason : Blood Pressure : / mmHG Vent. Rate : 051 BPM Atrial Rate : 051 BPM P-R Int : 200 ms QRS Dur : 072 ms QT Int : 444 ms P-R-T Axes : 009 003 030 degrees QTc Int : 409 ms Sinus bradycardia with sinus arrhythmia Low voltage QRS Cannot rule out Anterior infarct (cited on or before 23-NOV-2019) Abnormal ECG When compared with ECG of 23-NOV-2019 10:49, No significant change was found Confirmed by Bryson Najera ([id number]) on 11/25/2019 11:46:16 PM Referred By: REFERRED SELF Confirmed By:Bryson Najera
== END 2019-11-24 15:55 | disposition home or self-care (01) ==
LOC: ED 10:37 → 2N 10:37 → SUATTDRO 13:04 → 2N 13:55